=== PATIENT | female | born 1990 | race African-American/Black ===

== ENCOUNTER 2017-04-16 19:53 | Inpatient (IN) | payer MEDICAID, OTHER ==
[2017-04-16] VITALS (7 sets, daily range): BP systolic 120–125; BP diastolic 60–73; PULSE 85–107; RESP 18; TEMP 98.2; O2SAT 97–98
[~2017-04-16] VITALS: Ht 162.6 cm; Wt 88.0 kg
[~2017-04-16 19:53] MED LIST: PREN1CAP7 PO
--- NOTE | 2017-04-16 20:37 | PD ---
HPI Chief Complaint Decreased movement left twin Date Seen: April 16, 2017 Time Seen: 20:32 Travel History International Travel<30 Days: No Contact w/Intl Traveler<30Days: No Known Affected Area: No History of Present Illness HPI 26-year-old female with diamniotic dichorionic twin gestation at 37 weeks. Patient had a biophysical profile today and she and her spouse were worried because a biophysical took longer than normal. She has perceived some decreased movement on the left side and was concerned about the twin on the left side. Denies abdominal pain or contractions no vaginal bleeding no vaginal discharge. Show cervical exam this morning and she was 2 cm she was still long and the head was high. She is planning on a vaginal delivery with this . Para: 1 : 2 History Past Medical History Medical History: Denies Significant Hx Obstetric History Obstetric History Spontaneous vaginal delivery 6 lbs. 4 oz. Past Surgical History Surgical History: No Previous Surgery Family History Family History: Negative Social History Alcohol Use: No Tobacco Use: No Substance Abuse: No Allergies-Medications (Allergen,Severity, Reaction): Coded Allergies: No Known Allergies (Unverified , 04/09/17) Home Meds Active Scripts W/O Vit A W/ Fe Fumar (Citranatal [place])27-1-260 Mg Cap1 Cap PO DAILY #30 CAP Ref 11 Prov:Bia Betancur 03/14/17 Review of Systems Except as stated in HPI: all other systems reviewed are Neg Physical Exam Narrative GENERAL: Well-nourished, well-developed patient. SKIN: Warm and dry. HEAD: Normocephalic and atraumatic. EYES: No scleral icterus. No injection or drainage. ABDOMEN/GI: Abdomen soft, non-tender, bowel sounds present, no rebound, no guarding Gravid to [-43] weeks size Fundal Height: [43-] GENITOURINARY: Deferred External Genitalia: intact and normal in appearance BUS glands: [-] Cervix: [-] Dilatation: [-] Effacement: [-] Station: [-] Presentation: [-] Membranes: [intact or ruptured] Uterine Contractions: [-] FHT's: Category: [-1 for both twins] Baseline: [-135 and 140] Reactive: [Moderate-] Variability: [-Moderate] Decels: [-Absent] EXTREMITIES: No cyanosis or edema. BACK: Nontender without obvious deformity. No CVA tenderness. NEUROLOGICAL: Awake and alert. Motor and sensory grossly within normal limits. Five out of 5 muscle strength in all muscle groups. Normal speech. Data Data Vital Signs Reviewed: Yes MDM Plan at 37 weeks with di/di twins with decreased movement in the left when Nonstress test was performed and was reactive category 1 tracing No contractions are noted I reviewed her biophysical profile from today and it was 10 out of 10 for each twin patient was reassured Patient will follow up with her OB provider as scheduled Diagnosis Diagnosis: Primary Impression: 37 weeks gestation of Additional Impressions: Dichorionic diamniotic twin gestation Dichorionic diamniotic twin in third trimester Decreased movement during in third trimester, antepartum Disposition: 01 DISCHARGE HOME Jigna West MD April 16, 2017 20:37
[2017-04-16] MEDS ORDERED: OXYTOCIN 10 UNIT/ML AMP ONE (21:53)
[2017-04-16] MEDS ORDERED: LACTATED RINGER'S 1000 ML INJ 1,000 ML IV ONE (21:54)
--- NOTE | 2017-04-16 22:01 | HHI.HP ---
HPI Chief Complaint Decreased movement Date Seen: April 16, 2017 Time Seen: 21:56 Travel History International Travel<30 Days: No Contact w/Intl Traveler<30Days: No Known Affected Area: No History of Present Illness HPI 26-year-old female with diamniotic dichorionic twin gestation at 37 weeks. Patient had a biophysical profile today and she and her spouse were worried because a biophysical took longer than normal. She has perceived some decreased movement on the left side and was concerned about the twin on the left side. Denies abdominal pain or contractions no vaginal bleeding no vaginal discharge. Show cervical exam this morning and she was 2 cm she was still long and the head was high. She is planning on a vaginal delivery with this . Para: 1 : 2 History Past Medical History Medical History: Denies Significant Hx Obstetric History Obstetric History 6#4oz Past Surgical History Surgical History: No Previous Surgery Family History Family History: Negative Social History Alcohol Use: No Tobacco Use: No Substance Abuse: No Allergies-Medications (Allergen,Severity, Reaction): Coded Allergies: No Known Allergies (Unverified , 04/09/17) Home Meds Active Scripts W/O Vit A W/ Fe Fumar (Citranatal [place])27-1-260 Mg Cap1 Cap PO DAILY #30 CAP Ref 11 Prov:Bia Betancur 03/14/17 Review of Systems Except as stated in HPI: all other systems reviewed are Neg Physical Exam Narrative GENERAL: Well-nourished, well-developed patient. SKIN: Warm and dry. HEAD: Normocephalic and atraumatic. EYES: No scleral icterus. No injection or drainage. ENT: No nasal drainage noted. Mucous membranes pink. Airway patent. NECK: Supple, trachea midline. No JVD. CARDIOVASCULAR: Regular rate and rhythm without murmurs, gallops, or rubs. RESPIRATORY: Breath sounds equal bilaterally. No accessory muscle use. BREASTS: Bilateral exam showed no masses , no retractions, no nipple discharge. ABDOMEN/GI: Abdomen soft, non-tender, bowel sounds present, no rebound, no guarding Gravid to [-43] weeks size Fundal Height: [-] GENITOURINARY: External Genitalia: intact and normal in appearance BUS glands: [nl-] Cervix: [-post] Dilatation: [-2] Effacement: [50-] Station: [-03] Presentation: [-vtx twin a] Membranes: [intact ] Uterine Contractions: [-] FHT's: Category: 1 Twin A, 2 Twin B Baseline: 135 both twins Reactive: [-moderate] Variability: [-moderate] Decels: Variable decelerations with Twin B with contractions to 80 x 30-90 seconds EXTREMITIES: No cyanosis or edema. BACK: Nontender without obvious deformity. No CVA tenderness. NEUROLOGICAL: Awake and alert. Motor and sensory grossly within normal limits. Five out of 5 muscle strength in all muscle groups. Normal speech. Data Data Vital Signs Reviewed: Yes Orders Ob (2e) Additional Admit Info (04/16/17 21:49) Oxytocin Inj (Pitocin Inj) (04/16/17 21:53) Admit To Inpatient (04/16/17 ) Vital Signs (Adult) .ON ADMISSION (04/16/17 21:54) Activity Oob Ad Jess (04/16/17 21:54) Heart (04/16/17 21:54) Urinary Catheter Management RASHEEDA.Q8H (04/16/17 21:54) ^ Preps (04/16/17 21:54) Scd / Bo / Foot Pump RASHEEDA.QSHIFT (04/16/17 21:54) ^ Ultrasound For Locatio (04/16/17 21:54) Diet Npo (04/17/17 Breakfast) Lactated Ringer's 1000 Ml Inj (Lr 1000 M (04/16/17 21:54) Assessment/Plan Problem List: (1) Dichorionic diamniotic twin gestation (2) 37 weeks gestation of (3) Decreased movement during in third trimester, antepartum (4) Non-reassuring heart rate or rhythm affecting management of mother Assessment and Plan 26yo at 37 weeks with diamniotic/dichorionic twin gestation Nonreassuring FHR tracing Twin B Plan Jigna West MD April 16, 2017 22:01
[2017-04-16] MEDS ORDERED: LACTATED RINGER'S 1000 ML INJ 1,000 ML IV SCH (22:24)
[2017-04-16 22:35] LABS: BASOPHIL # 0.1 TH/MM3 (0-0.2); BASOPHIL % 0.5 % (0.0-2.0); EOSINOPHIL # 0.3 TH/MM3 (0-0.4); EOSINOPHIL % 1.8 % (0.0-4.0); HEMATOCRIT 34.4 % (35.0-46.0); HEMO FLAGS DIFF FINAL; LYMPH % 22.3 % (9.0-44.0); LYMPHOCYTE # 3.6 TH/MM3 (1.0-4.8); MEAN CELL VOLUME 75.4 FL (80.0-100.0); MEAN CORPUSCULAR HEMOGLOBIN 24.2 PG (27.0-34.0); MEAN CORPUSCULAR HGB CONC 32.1 % (32.0-36.0); MONO % 8.4 % (0.0-8.0); PLATELET COUNT 140 TH/MM3 (150-450); RED BLOOD COUNT 4.57 MIL/MM3 (4.00-5.30); RED CELL DISTRIBUTION WIDTH 17.3 % (11.6-17.2); WHITE BLOOD COUNT 16.3 TH/MM3 (4.0-11.0)
[2017-04-16] MEDS ORDERED: ALBUAER3 INH (22:47)
[2017-04-16] MEDS ORDERED: ceFAZolin 2 GM PREMIX 50 ML IV SCH (23:00)
[2017-04-16] MEDS ORDERED: ONDANSETRON HCL 4 MG/2 ML VIAL ONE (23:20)
[2017-04-16] MEDS ORDERED: MORPHINE SULFATE PF 5 MG/10 ML VIAL ONE (23:20)
[2017-04-16] MEDS ORDERED: MEPERIDINE HCL 25 MG/ML VIAL ONE (23:24)
[2017-04-16] MEDS ORDERED: CITRIC ACID-SODIUM CITRATE LIQ 30 ML UDC PO SCH (23:30)
--- NOTE | 2017-04-16 23:31 | PD.OB.DELI ---
Procedure Note Section Procedure Pre Op Diagnosis: (1) Non-reassuring heart rate or rhythm affecting management of mother (2) Dichorionic diamniotic twin gestation (3) 37 weeks gestation of (4) Decreased movement during in third trimester, antepartum (5) Nuchal cord with compression, delivered, current hospitalization Post Op Diagnosis: Performed by Jigna West Procedure: Primary Low Transverse Sec Indication for delivery: Nonreassuring heart tracing Informed consent obtained: For anesthesia, For procedure Confirmed correct: Time-out taken Anesthesia: Spinal Medication prior to procedure: Antacids, Antibiotics, IV Monitoring during procedure: Blood pressure monitoring, Pulse oximetry Urinary catheter: Inserted using sterile technique, To dependent drainage Sterile preparation: Duraprep Position: Supine with wedge to left side Operative Features Skin Incision: Pfannenstiel Uterine Incision: Low transverse w/knife / blunt ext Membranes Ruptured: Artificially, Appearance of fluid (twin a with clear fluid , twin B moderate meconium) Presentation: Vertex, Other (vertex twin a, back up transverse lie with twin b) Time of : 22:52 Delivery of : Other (twin A vertex, Twin B with cord around lower extremity, upper extremity and nuchal cord x 2) Infant: Male, Multiple (Male x 2) One Minute : 9 (Twin B 6) Five Minute : 9 (Twin B 8) Weight: 3030gm, 1865gm Status of : Viable, Umbilical cord (attenuated cord for Twin A) Placenta delivered: Intact, Sent to pathology Estimated blood loss: 800 Procedure tolerated: Well Maternal Condition: Stable Condition: Stable Jigna West MD April 16, 2017 23:31
[2017-04-16] MEDS ORDERED: SIMETHICONE 80 MG CHEWABLE TAB PO PRN (23:45)
[2017-04-16] MEDS ORDERED: ONDANSETRON HCL 4 MG/2 ML VIAL IV PUSH PRN (23:45)
[2017-04-16] MEDS ORDERED: oxyCODONE/ACETAMINOPHEN 5 MG/325 MG TAB PO PRN (23:45)
[2017-04-16] MEDS ORDERED: OXYTOCIN 30 UNITS-500ML PREMIX 500 ML IV ONE (23:45)
[2017-04-16] MEDS ORDERED: SODIUM CHLORIDE 0.9% FLUSH 10 ML FLUSH IV FLUSH PRN (23:45)
[2017-04-16] MEDS ORDERED: KETOROLAC TROMETHAMINE 60 MG/2 ML (IM) VIAL IM PRN (23:45)
[2017-04-17] VITALS (9 sets, daily range): BP systolic 111–127; BP diastolic 63–79; PULSE 80–101; RESP 16–20; TEMP 98–98.9; O2SAT 100
[2017-04-17] MEDS ORDERED: OXYTOCIN 30 UNITS-500ML PREMIX 500 ML ONE (00:34)
[2017-04-17] MEDS ORDERED: EPIDURAL-DIPHENHYDRAMINE HCL 50 MG/ML VIAL IV PUSH PRN (01:30)
[2017-04-17] MEDS ORDERED: EPIDURAL-DIPHENHYDRAMINE HCL 50 MG CAP PO PRN (01:30)
[2017-04-17] MEDS ORDERED: EPIDURAL-NO SYSTEMIC NARCOTICS PRN (01:30)
[2017-04-17] MEDS ORDERED: EPIDURAL-NALOXONE HCL 0.4 MG/ML AMP IV PRN (01:30)
[2017-04-17] MEDS ORDERED: EPIDURAL-DO NOT ADMINISTER ANTICOAGULANTS PRN (01:30)
[2017-04-17] MEDS ORDERED: LACTATED RINGER'S 1000 ML INJ 1,000 ML IV SCH (04:31)
[2017-04-17 06:23] LABS: AUTOMATED NEUTROPHIL # 15.8 TH/MM3 (1.8-7.7); BASOPHIL # 0.1 TH/MM3 (0-0.2); BASOPHIL % 0.3 % (0.0-2.0); EOSINOPHIL # 0.2 TH/MM3 (0-0.4); EOSINOPHIL % 0.8 % (0.0-4.0); HEMO FLAGS DIFF FINAL; LYMPH % 12.4 % (9.0-44.0); LYMPHOCYTE # 2.5 TH/MM3 (1.0-4.8); MEAN CELL VOLUME 75.9 FL (80.0-100.0); MEAN CORPUSCULAR HEMOGLOBIN 23.7 PG (27.0-34.0); MEAN CORPUSCULAR HGB CONC 31.3 % (32.0-36.0); MONO % 7.4 % (0.0-8.0); NEUT % 79.1 % (16.0-70.0); PLATELET COUNT 122 TH/MM3 (150-450); RED BLOOD COUNT 4.09 MIL/MM3 (4.00-5.30); RED CELL DISTRIBUTION WIDTH 16.8 % (11.6-17.2); WHITE BLOOD COUNT 19.9 TH/MM3 (4.0-11.0)
[2017-04-17] MEDS: SODIUM CHLORIDE 0.9% FLUSH 10 ML FLUSH IV FLUSH SCH (09:00)
[2017-04-17] MEDS ORDERED: OXYTOCIN 30 UNITS-500ML PREMIX 500 ML IV PRN (09:45)
--- NOTE | 2017-04-17 10:19 | HHI.OB ---
Subjective Post Operative Day: 1 Remarks Pt seen and examined this morning.Postoperative day # 1 AFVSS overnight. Incision not draining. Decreased lochia. Denies dysuria. No breast tenderness. She is feeding the baby via breast and bottle. Appetite good. Pt with nausea and vomiting this morning. Patient has not yet had a bowel movement. -Flatus. Pt has not yet ambulated. Denies calf pain or shortness of breath. Otherwise, she is doing well this morning and has no other concerns. (Abilio Bishop MD R2) Objective Vitals/I&O Vital Signs Date Time Temp Pulse Resp B/P Pulse Ox O2 Delivery O2 Flow Rate FiO2 04/17/17 08:00 111/71 04/17/17 08:00 98.5 82 16 04/17/17 05:39 115/63 04/17/17 05:39 98.1 86 18 04/17/17 01:50 98.1 101 20 121/73 04/17/17 00:35 98.2 18 04/17/17 00:20 100 04/17/17 00:19 18 04/17/17 00:19 93 124/73 04/17/17 00:05 124/69 04/17/17 00:05 18 04/17/17 00:05 85 04/16/17 23:50 98 04/16/17 23:50 85 18 122/73 04/16/17 23:35 95 18 120/60 04/16/17 23:35 97 04/16/17 23:20 98.2 18 04/16/17 23:20 100 125/62 04/16/17 23:20 98 04/16/17 21:55 107 04/16/17 21:50 101 04/16/17 21:45 102 04/16/17 21:40 91 (Abilio Bishop MD R2) Result Diagram: 04/17/17 0447 Objective Remarks GENERAL: Well-nourished, well-developed patient. CARDIOVASCULAR: Regular rate and rhythm without murmurs, gallops, or rubs. RESPIRATORY: Breath sounds equal bilaterally. No accessory muscle use. ABDOMEN/GI: Abdomen soft, non-tender, bowel sounds present. Incision: Clean, dry and intact. Fundus: Firm, non-tender at umbilicus. GENITOURINARY: Light to moderate bleeding. EXTREMITIES: No cyanosis or edema, non-tender, without signs of DVT. Medications and IVs Current Medications Medications (Trade) Dose Ordered Sig/Tori Route Start Time Stop Time Status Last Admin Lactated Ringer's 1,000 ml @ 150 mls/hr Q6H40M IV 04/16/17 22:24 04/16/17 22:44 (Lr 1000 ml Inj) 1,000 ml @ 100 mls/hr Q10H IV 04/17/17 04:31 04/18/17 00:30 04/17/17 06:07 (NS Flush) 2 ml BID IV FLUSH 04/17/17 09:00 (NS Flush) 2 ml UNSCH PRN IV FLUSH 04/16/17 23:45 (Mylicon Chew) 80 mg QID PRN PO 04/16/17 23:45 (Motrin) 600 mg Q6H PRN PO 04/16/17 23:45 (Toradol Inj) 30 mg Q6H PRN IM 04/16/17 23:45 04/17/17 23:44 04/17/17 06:18 (Percocet 5-325 Mg) 1 tab Q4H PRN PO 04/16/17 23:45 (Percocet 5-325 Mg) 2 tab Q4H PRN PO 04/16/17 23:45 (Lashell-Colace) 2 tab Q12H PRN PO 04/16/17 23:45 (M-M-R Ii Inj) 0.5 ml ONCE ONCE SQ 04/17/17 16:00 04/17/17 16:01 (Boostrix Inj) 0.5 ml ONCE ONCE IM 04/17/17 16:00 04/17/17 16:01 (Zofran Inj) 4 mg Q6H PRN IV PUSH 04/16/17 23:45 Miscellaneous Information NO SYSTEMIC NARCOTICS TO BE GIVEN FO... UNSCH PRN .XX 04/17/17 01:30 04/18/17 01:29 (Narcan Inj) 0.4 mg UNSCH PRN IV 04/17/17 01:30 04/18/17 01:29 (Benadryl Inj) 25 mg Q6H PRN IV PUSH 04/17/17 01:30 04/18/17 01:29 (Benadryl) 50 mg Q6H PRN PO 04/17/17 01:30 04/18/17 01:29 Miscellaneous Information ALL NURSING DEPARTMENTS UNSCH PRN .XX 04/17/17 01:30 04/18/17 01:29 (Abilio Bishop MD R2) Assessment/Plan Problem List: (1) Dichorionic diamniotic twin gestation (2) 37 weeks gestation of (3) Decreased movement during in third trimester, antepartum (4) Non-reassuring heart rate or rhythm affecting management of mother Assessment and Plan 26 y/o female who is POD# 1 s/p CXN. -Continue routine care. -Percocet and Motrin PRN pain. -Encouraged OOB. Advised pelvic rest for 6 wks. Will need a f/u appt. in 1-2 wks for incision check. -Re: ctrl, she would like to consider her options. -Anticipate discharge in 1-[address] Brett MD (Abilio Bishop MD R2) Collaborating MD Comments Agree with management and plan of care (Jigna West MD) Abilio Bishop MD R2 April 17, 2017 10:19 Jigna West MD April 21, 2017 07:50
--- NOTE | 2017-04-17 11:45 | MP ---
cc: SUREKHA MORAN M.D. DATE OF SURGERY 04/16/2017 PREOPERATIVE DIAGNOSES 1. 37-week gestation. 2. Dichorionic diamniotic twin gestation. 3. Decreased movement during in third trimester. 4. Non-reassuring heart rate tracing. POSTOPERATIVE DIAGNOSIS 1. 37-week gestation. 2. Dichorionic diamniotic twin gestation. 3. Decreased movement during in third trimester. 4. Non-reassuring heart rate tracing. PROCEDURE Primary low transverse section without extension. ESTIMATED BLOOD LOSS 800 cc. SURGEON Surekha Moran MD PREPARED [employer]ODUCTION TEAM MEMBER OR staff. ANESTHETIC Spinal. DRAINS Steward to gravity. COUNTS Correct x 3. MEDICATIONS Ancef 2 grams given preoperatively. PATHOLOGY Placenta. FINDINGS 1. Normal uterus, tubes and ovaries. 2. Twin A with clear amniotic fluid in a vertex presentation. Apgars were 9 and 9. 3. Twin B in a backup transverse delivered breech, Apgars of 6 and 8 with a nuchal cord around a lower extremity, a nuchal cord around an upper extremity and nuchal cord x 2 around the neck. 4. Twin A's weight was 3030 grams. Twin B's weight was 1855 grams. Twin B had moderate meconium-stained amniotic fluid. DESCRIPTION OF PROCEDURE The patient was taken back to the operating room, prepped and draped in the usual sterile fashion, placed in the dorsal supine position with a wedge to her left side. After adequate anesthetic was obtained, a transverse pulmonary function incision was made in the skin and taken down to the fascia. The fascia was nicked in the midline, extended bilaterally, then taken off the rectus muscles. The muscles were divided in the midline. Anterior peritoneum was entered, extended superiorly and inferiorly taking care to avoid traumatization to bowel and bladder. A transverse hysterotomy incision was made, bluntly extended bilaterally. The 's bag of water was ruptured. Clear fluid was obtained. The head was delivered through the operative field. The rest of the body was delivered. We attempted to do a delayed cord clamping but the placenta began to separate and the baby had to be sent off to resuscitation after only 20 seconds. Twin B was a backup transverse lie. The feet were pulled into the operative field. Using counter-clockwise and clockwise rotation the upper extremities were delivered. I had to remove the cord around the lower extremity, the upper extremity and then the baby had a double nuchal cord as well. Baby's cord was also very attenuated. He was given to resuscitation and a delayed cord clamping for 30 seconds. The placenta was already detaching and removed and sent for histopathology. The endometrial cavity was curetted with a moist laparotomy sponge. The hysterotomy incision was repaired using running locking #1 chromic suture with good hemostasis. The gutters were rendered free of all blood and clot material. The fascia was closed with a #1 PDS. The subcutaneous tissue was closed with a running suture of 3-0 plain gut, a subcuticular suture of 3-0 Monocryl was placed into the skin. The patient tolerated the procedure well. Surekha Moran MD LH/SSB /11:31 PM /11:34 AM
[2017-04-17] MEDS: IBUPROFEN 600 MG TAB PO PRN (13:10)
[2017-04-17] MEDS ORDERED: MEASLES, MUMPS, RUBELLA VACCINE 0.5 ML VIAL SQ ONE (16:00)
[2017-04-17] MEDS ORDERED: DIPHTH/TETANUS/ACEL PERTUSSIS (BOOSTER) 0.5 ML VIAL/PFS IM ONE (16:00)
[2017-04-18] MEDS: IBUPROFEN 600 MG TAB PO PRN ×3 (05:35→20:57)
--- NOTE | 2017-04-18 08:38 | HHI.OB ---
Subjective Post Operative Day: 2 Remarks Pt seen and examined this morning.Postoperative day # 2 AFVSS overnight. Incision not draining. Decreased lochia. Denies dysuria. No breast tenderness. She is feeding the baby via breast and bottle. Appetite good. No nausea or vomiting. Patient has not yet had a bowel movement. -Flatus. Ambulating well. Denies calf pain or shortness of breath. She endorses occasional itching. Otherwise, she is doing well this morning and has no other concerns. Objective Vitals/I&O Vital Signs Date Time Temp Pulse Resp B/P Pulse Ox O2 Delivery O2 Flow Rate FiO2 04/17/17 17:04 98.0 88 16 127/79 04/17/17 13:05 98.9 80 18 119/77 Result Diagram: 04/17/17 0447 Objective Remarks GENERAL: Well-nourished, well-developed patient. CARDIOVASCULAR: Regular rate and rhythm without murmurs, gallops, or rubs. RESPIRATORY: Breath sounds equal bilaterally. No accessory muscle use. ABDOMEN/GI: Abdomen soft, non-tender, bowel sounds present. Incision: Clean, dry and intact. Fundus: Firm, non-tender at umbilicus. GENITOURINARY: Light to moderate bleeding. EXTREMITIES: No cyanosis or edema, non-tender, without signs of DVT. Medications and IVs Current Medications Medications (Trade) Dose Ordered Sig/Tori Route Start Time Stop Time Status Last Admin (Lr 1000 ml Inj) 1,000 ml @ 150 mls/hr Q6H40M IV 04/16/17 22:24 04/16/17 22:44 (NS Flush) 2 ml BID IV FLUSH 04/17/17 09:00 (NS Flush) 2 ml UNSCH PRN IV FLUSH 04/16/17 23:45 (Mylicon Chew) 80 mg QID PRN PO 04/16/17 23:45 (Motrin) 600 mg Q6H PRN PO 04/16/17 23:45 04/18/17 05:35 (Percocet 5-325 Mg) 1 tab Q4H PRN PO 04/16/17 23:45 (Percocet 5-325 Mg) 2 tab Q4H PRN PO 04/16/17 23:45 (Lashell-Colace) 2 tab Q12H PRN PO 04/16/17 23:45 (Zofran Inj) 4 mg Q6H PRN IV PUSH 04/16/17 23:45 Assessment/Plan Problem List: (1) Dichorionic diamniotic twin gestation (2) 37 weeks gestation of (3) Decreased movement during in third trimester, antepartum (4) Non-reassuring heart rate or rhythm affecting management of mother Assessment and Plan 26 y/o female who is POD# 2 s/p CXN. -Continue routine care. -Percocet and Motrin PRN pain. -Encouraged OOB. Advised pelvic rest for 6 wks. Will need a f/u appt. in 1-2 wks for incision check. -Re: ctrl, she would like to consider her options. -Anticipate discharge tomorrow. MD Dario Strauss Dr., Mariaah MD R2 April 18, 2017 08:38
[2017-04-18 10:20] VITALS: BP 115/71; PULSE 89; RESP 16; TEMP 98.1
[2017-04-18] MEDS: DOCUSATE SODIUM 50 MG/SENNA 8.6 MG TAB PO PRN (11:32)
[2017-04-18] MEDS: oxyCODONE/ACETAMINOPHEN 5 MG/325 MG TAB PO PRN ×2 (11:33→20:57)
[2017-04-18] MEDS: SODIUM CHLORIDE 0.9% FLUSH 10 ML FLUSH IV FLUSH SCH (19:35)
[2017-04-18 20:40] VITALS: BP 131/86; PULSE 95; RESP 18; TEMP 98.7
[2017-04-19 05:00] VITALS: BP 115/71; PULSE 74; RESP 16; TEMP 98.4
[2017-04-19] MEDS: oxyCODONE/ACETAMINOPHEN 5 MG/325 MG TAB PO PRN (06:23)
[2017-04-19] MEDS: DOCUSATE SODIUM 50 MG/SENNA 8.6 MG TAB PO PRN (06:23)
[2017-04-19] MEDS: IBUPROFEN 600 MG TAB PO PRN (06:23)
[2017-04-19] MEDS ORDERED: IBUP-232 PO (07:46)
[2017-04-19] MEDS ORDERED: SENN1TAB PO (07:46)
[2017-04-19] MEDS ORDERED: OXYC1TAB63 PO (07:46)
--- NOTE | 2017-04-19 07:48 | HHI.DCPOC ---
Discharge Care Plan Diagnosis: (1) Delivered by section Goals to Promote Your Health * To prevent worsening of your condition and complications * To maintain your health at the optimal level Directions to Meet Your Goals Take your medications as prescribed Follow your dietary instruction Follow activity as directed Keep your appointments as scheduled Take your immunizations and boosters as scheduled If your symptoms worsen call your PCP, if no PCP go to Urgent Care Center or Emergency Room Smoking is Dangerous to Your Health. Avoid second hand smoke Call the 24-hour hour crisis hotline for domestic abuse at Neftaly Garcia MD R2 April 19, 2017 07:48
[2017-04-19 08:00] VITALS: BP 120/75; PULSE 71; RESP 16; TEMP 98.5
--- NOTE | 2017-04-19 09:01 | HHI.OB ---
Subjective Remarks 26 eyar old s/p POD 3 after , delivery of twins. No events overnight. She has light lochia. No complaints about incision site. Has flatus, no bowel movement. OB provider is [facility]. She is breast and formula feeding. Pain well controlled. Undecided on control, will discuss with OB provider. (Neftaly Garcia MD R2) Objective Vitals/I&O Vital Signs Date Time Temp Pulse Resp B/P Pulse Ox O2 Delivery O2 Flow Rate FiO2 04/19/17 05:00 98.4 74 16 115/71 04/18/17 20:40 98.7 95 18 131/86 04/18/17 10:20 98.1 89 16 115/71 (Neftaly Garcia MD R2) Result Diagram: 04/17/17 0447 Objective Remarks GENERAL: Well-nourished, well-developed patient. CARDIOVASCULAR: Regular rate and rhythm without murmurs, gallops, or rubs. RESPIRATORY: Breath sounds equal bilaterally. No accessory muscle use. ABDOMEN/GI: Abdomen soft, non-tender, bowel sounds present. Incision: Clean, dry and intact. Fundus: Firm, non-tender at umbilicus. GENITOURINARY: Light to moderate bleeding. EXTREMITIES: No cyanosis or edema, non-tender, without signs of DVT. Medications and IVs Current Medications Medications (Trade) Dose Ordered Sig/Tori Route Start Time Stop Time Status Last Admin (Lr 1000 ml Inj) 1,000 ml @ 150 mls/hr Q6H40M IV 04/16/17 22:24 04/16/17 22:44 (NS Flush) 2 ml BID IV FLUSH 04/17/17 09:00 (NS Flush) 2 ml UNSCH PRN IV FLUSH 04/16/17 23:45 (Mylicon Chew) 80 mg QID PRN PO 04/16/17 23:45 04/18/17 11:32 (Motrin) 600 mg Q6H PRN PO 04/16/17 23:45 04/19/17 06:23 (Percocet 5-325 Mg) 1 tab Q4H PRN PO 04/16/17 23:45 04/19/17 06:23 (Percocet 5-325 Mg) 2 tab Q4H PRN PO 04/16/17 23:45 (Lashell-Colace) 2 tab Q12H PRN PO 04/16/17 23:45 04/19/17 06:23 (Zofran Inj) 4 mg Q6H PRN IV PUSH 04/16/17 23:45 (Neftaly Garcia MD R2) Assessment/Plan Problem List: (1) Dichorionic diamniotic twin gestation Assessment and Plan 26 y/o female who is POD# 3 s/p CXN. -Continue routine care. -Percocet and Motrin PRN pain. -Encouraged OOB. Advised pelvic rest for 6 wks. Will need a f/u appt. in 1-2 wks for incision check. -Re: ctrl, she remains undecided. -Anticipate discharge today. dw Dr. Sarah MD (Neftaly Garcia MD R2) Attending Attestation Pt seen and examined, agree with above. (Minerva Smith MD) Neftaly Garcia MD R2 April 19, 2017 09:01 Minerva Smith MD April 19, 2017 09:33
== END 2017-04-19 14:59 | disposition home or self-care (01) | DRG 765 ==
LOC: HOBED 19:53 → H2EB 21:52 → H1EA 04-17 00:47
PROVIDERS: ADMIT Obstetrics & Gynecology Obstetrics; ATTEND Obstetrics & Gynecology Obstetrics
PROC: 10D00Z1 Extraction of Products of Conception, Low, Open Approach (ICD-10-PCS; principal; 2017-04-16)
DX: O36.8130 Decreased fetal movements, third trimester, not applicable or unspecified (principal); O30.043 Twin pregnancy, dichorionic/diamniotic, third trimester; Z37.2 Twins, both liveborn; O76 Abnormality in fetal heart rate and rhythm complicating labor and delivery; O69.1XX0 Labor and delivery complicated by cord around neck, with compression, not applicable or unspecified; O77.0 Labor and delivery complicated by meconium in amniotic fluid; R11.2 Nausea with vomiting, unspecified; Z3A.37 37 weeks gestation of pregnancy
CPT/HCPCS: 59025; 76818; 85025; 86850; 86900; 86901; 88307; J0690; J1885; J2175; J2274; J2405; J2590; J7120